=== PATIENT | male | born 1935 | race Caucasian/White ===

== ENCOUNTER 2019-04-04 10:17 | Day surgery (SDC) | payer OTHER, MEDICARE ==
[2019-04-01 16:48] VITALS: BMI 31.9
--- NOTE | 2019-04-04 07:43 | HP ---
History & Physical Update - History History: No Change - Physical Physical: No Change - Assessment Assessment: No Change - Plan Plan: No Change (Initial H&P is located in pt's paper chart by Jose Gupta MD on 03/18/19. No new complaints or medications. C/o LBP w/ radiation into hips and bilat LE (L>R). Here today for elective laminectomy L4-S1.)
[2019-04-04] MEDS ORDERED: GABAPENTIN 300 MG CAPSULE (FP) PO STA (10:46)
[2019-04-04] MEDS ORDERED: oxyCODONE HCL 10 MG SUSTAINED ACTING TABLET PO STA (10:46)
[2019-04-04] MEDS ORDERED: GABAPENTIN 300 MG CAPSULE (FP) ONE (10:48)
[2019-04-04] MEDS ORDERED: oxyCODONE HCL 10 MG SUSTAINED ACTING TABLET ONE (10:48)
[2019-04-04] MEDS ORDERED: THROMBIN (BOVINE) 5,000 UNIT VIAL TP ONE ×2 (12:28→15:09)
[2019-04-04] MEDS ORDERED: LIDOCAINE 1%/EPI 1:100000 (20 ML MULTI DOSE VIAL) ONE (12:34)
[2019-04-04] MEDS ORDERED: GUM MASTIC/STORAX/MSAL/ALCOHOL 1 DRP DROPSBTL MC ONE ×2 (12:34→16:12)
[2019-04-04] MEDS ORDERED: methylPREDNISolone ACET (DEPO) 40 MG/1 ML VIAL ONE (12:34)
[2019-04-04] MEDS ORDERED: THROMBIN (RECOMBINANT) 5,000 UNIT VIAL TP ONE (12:34)
[2019-04-04] MEDS ORDERED: MIDAZOLAM HCL 2 MG/2 ML SINGLE DOSE VIAL ONE (13:37)
[2019-04-04] MEDS ORDERED: DEXAMETHASONE SOD PHOSPHATE 4 MG/1 ML VIAL ONE (13:38)
[2019-04-04] MEDS ORDERED: BUPIVACAINE HCL/PF (5 MG/ML) 30 ML VIAL IJ ONE ×2 (13:38→13:51)
[2019-04-04] MEDS ORDERED: DEXAMETHASONE SOD PHOSPHATE/PF 10 MG/ML SDV ONE ×2 (13:39→13:51)
[2019-04-04] MEDS ORDERED: ceFAZolin SODIUM 1 GM VIAL ONE (14:37)
[2019-04-04] MEDS ORDERED: PROMETHAZINE HCL 25 MG/1 ML VIAL IVPUSH PRN (16:24)
[2019-04-04] MEDS ORDERED: ONDANSETRON 4 MG/2 ML VIAL IVPUSH PRN (16:24)
[2019-04-04] MEDS ORDERED: oxyCODONE HCL 5 MG TABLET PO PRN (16:25)
--- NOTE | 2019-04-04 16:25 | OP ---
Operative Note - Note: Operative Date: 04/04/19 Pre-Operative Diagnosis: Spinal stenosis w/ bilat LE radiculopathy Operation: L4-S1 laminectomy (bilateral) Post-Operative Diagnosis: Same as Pre-op Surgeon: Mir [facility] Plan Administrator: Rene Kahn Anesthesiologist/MEASUREMENT TECHNICIAN: Martin Hayes Anesthesia: Spinal Estimated Blood Loss (mls): 30 Fluid Volume Replaced (mls): 1,000 Operative Report Dictated: Yes
--- NOTE | 2019-04-04 16:26 | SURG ---
Surgery Transfer Car Operator Note Transfer Car Operator: Rene Kahn PA-C Date of Service: 04/04/19 Diagnosis: Spinal stenosis (L4-S1) w/ bilat LE radiculopathy Procedure: l4-s1 LAMINECTOMY (BILATERAL) I was present for the entirety of the operative procedure. For further detail, please refer to operative report. Visit type - Case Type Case Type: Scheduled - New patient This patient is new to me today: Yes Date on this admission: 04/04/19
--- NOTE | 2019-04-04 17:36 | OP ---
DATE OF OPERATION: 04/04/2019 PREOPERATIVE DIAGNOSIS: Spinal stenosis, L4-5 and L5-S1. POSTOPERATIVE DIAGNOSIS: Spinal stenosis, L4-5 and L5-S1. PROCEDURE PERFORMED: Laminectomy, L4-5 and L5-S1. SURGEON: Mir Vernon MD PERSONAL FINANCIAL COUNSELOR: MAHAMED Montes ESTIMATED BLOOD LOSS: 100 mL. IV FLUIDS: Per Anesthesia. ANESTHESIA: Spinal/TLIP. COMPLICATIONS: There were none. DISPOSITION: Patient was brought to the PACU in stable condition. INDICATION FOR SURGERY: The patient is an 84-year-old gentleman who has been suffering from pain from his back down his legs. X-rays and MRI were completed, which noted that he has spinal stenosis from L4 down to S1. He had gone through an exhaustive course of treatment for this, which included medications, physical therapy, as well as injections. Unfortunately his pain continued to persist despite all this. At this point, risks, benefits and alternatives were discussed and the patient consented to surgery. OPERATIVE NOTE: The patient was brought to the operating room by the anesthesia staff. After appropriate patient identification was performed, spinal anesthesia was given. A TLIP block was also given. The patient was able to position himself prone onto the OR table, with all areas of bony prominences well padded. At this time, 2 needles were placed onto his back to jose off the L4 to S1 segments. An x-ray was taken to confirm this was correct. The needles were removed and 10 mL of lidocaine with epinephrine was injected into his back. At this time, his back was prepped and draped in a sterile manner. At this point, timeout was completed. An incision was made from the top of L4 down to the bottom of S1. Dissection was carried down to the fascia. The fascia was split open at this time and the appropriate retractors were then placed in. A spinal needle was placed onto the L4 lamina to jose off the L4-5 level. X-ray was taken to confirm this is correct. The needle was removed, and the L4-5 and L5-S1 interspinous ligament was removed. The L5 spinous process was removed. The L5 lamina was removed. The flavum was identified, it was removed. A complete decompression was performed such that by the end of the procedure, the L5 and S1 nerve roots appeared to be well decompressed. All bleeding was well controlled at this time. Steroid was placed over the nerve root, FloSeal was placed over that. The fascia was closed with a number 1 Vicryl suture. The subcutaneous tissue was closed with 2-0 Vicryl suture. Skin was closed with 3-0 Monocryl suture. Dermabond was applied, Steri-Strips were applied, a sterile dressing was applied. The patient was placed supine on the OR bed and brought to the PACU in stable condition. Jocelin [id number]
[2019-04-04 18:49] VITALS: TEMP 98.5
[2019-04-04 19:14] VITALS: BP 130/62; PULSE 90
== END 2019-04-04 19:00 | disposition home or self-care (01) ==
LOC: FASU 10:17
PROVIDERS: ATTEND Orthopaedic Surgery Orthopaedic Surgery of the Spine
PROC: 01NB0ZZ Release Lumbar Nerve, Open Approach (ICD-10-PCS; principal; 2019-04-04 14:54)
DX: M48.061 Spinal stenosis, lumbar region without neurogenic claudication (principal); M48.07 Spinal stenosis, lumbosacral region
CPT/HCPCS: 72100-TC-FY; 94760